=== PATIENT | female | born 1980 | race Caucasian/White ===

== ENCOUNTER 2019-01-08 10:53 | Emergency (ER) | payer MEDICAID ==
[~2019-01-08] VITALS: Ht 157.5 cm; Wt 63.6 kg
[~2019-01-08 10:53] MED LIST: BACI28.42 TP; CYCL-394 PO; HYDR1TAB PO; IBUP-1984 PO; IBUP-1985 PO; NO HOME MEDS
[2019-01-08 11:18] VITALS: BP 96/65
[2019-01-08] MEDS ORDERED: lactulose 20gm/30ml cup PO ONE (12:00)
[2019-01-08] MEDS ORDERED: normal saline 1000ML IV soln IVB ONE (12:00)
[2019-01-08 13:09] LABS: BASOPHILS % (AUTO) 0.9 % (0-1); EOSINOPHILS # (AUTO) 0.1 X10'3 (0-0.9); EOSINOPHILS % (AUTO) 1.7 % (0-6); HEMATOCRIT 38.8 % (35.0-45.0); HEMOGLOBIN 12.9 g/dl (12.0-16.0); LYMPHOCYTES # (AUTO) 1.2 X10'3 (1.1-4.8); LYMPHOCYTES % (AUTO) 22.1 % (21-51); MEAN CORPUSCULAR HEMOGLOBIN 25.9 PG (27.0-31.0); MEAN CORPUSCULAR HGB CONC 33.2 g/dL (33.0-36.5); MEAN PLATELET VOLUME 7.7 FL (7.4-10.4); MONOCYTES # (AUTO) 0.3 X10'3 (0-0.9); MONOCYTES % (AUTO) 6.6 % (2-12); NEUTROPHILS # (AUTO) 3.6 X10'3 (1.8-7.7); NEUTROPHILS % (AUTO) 68.7 % (42-75); PLATELET COUNT 295 X10'3 (140-440); RED BLOOD COUNT 4.98 X10'6 (4.20-5.60); WHITE BLOOD COUNT 5.2 X10'3 (4.5-11.0)
[2019-01-08] MEDS ORDERED: azithromycin 250mg tablet PO ONE (13:20)
[2019-01-08] MEDS ORDERED: CefTRIAXone 250MG IM Kit w/LIDOcaine IM ONE (13:20)
[2019-01-08] MEDS ORDERED: HYDR-4383 PO (13:22)
[2019-01-08] MEDS ORDERED: ACYC400T PO (13:22)
[2019-01-08 13:30] LABS: ALANINE AMINOTRANSFERASE 16 U/L (12-78); ALBUMIN 3.1 G/DL (3.4-5.0); ALBUMIN/GLOBULIN RATIO 0.6 (1.1-1.5); ALKALINE PHOSPHATASE 106 IU/L (46-116); ANION GAP 8 (8-16); ASPARTATE AMINO TRANSFERASE 16 U/L (10-37); BILIRUBIN,TOTAL 0.2 MG/DL (0.1-1.0); BLOOD UREA NITROGEN 12 MG/DL (7-18); BUN/CREATININE RATIO 16.7 (6.6-38.0); CALCIUM 8.6 MG/DL (8.5-10.1); CHLORIDE 101 MMOL/L (99-107); CREATININE 0.72 MG/DL (0.40-0.90); GLUCOSE 101 MG/DL (70-104); POTASSIUM 4.2 MMOL/L (3.5-5.1); SODIUM 137 MMOL/L (135-145); TOTAL CARBON DIOXIDE 27.7 MMOL/L (24-32); TOTAL PROTEIN 8.2 G/DL (6.4-8.2); eGFR > 90 ML/MIN
[2019-01-08 13:46] LABS: HIV ANTIBODY 1&2 RAPID NON-REACTIVE (Neg)
[2019-01-10 11:21] LABS: RPR Reactive (Non Reactive)
--- NOTE | 2019-01-10 14:05 | NUR ---
Patient possitive for syphillis and was calling patient to come in for treatment, unable to reach patient by all three phone numbers under demographics.
== END 2019-01-08 13:47 | disposition home or self-care (01) ==
LOC: ER 10:53
DX: A63.8 Other specified predominantly sexually transmitted diseases (principal); B00.9 Herpesviral infection, unspecified; L98.8 Other specified disorders of the skin and subcutaneous tissue; F12.90 Cannabis use, unspecified, uncomplicated; F15.90 Other stimulant use, unspecified, uncomplicated; F17.200 Nicotine dependence, unspecified, uncomplicated; Z90.49 Acquired absence of other specified parts of digestive tract; Z88.2 Allergy status to sulfonamides; Z79.899 Other long term (current) drug therapy
CPT/HCPCS: 36415; 80053; 85025; 86592; 86703; 96372; 99283; J0696

== ENCOUNTER 2022-01-28 16:52 | Emergency (ER) | payer MEDICAID ==
[~2022-01-28] VITALS: Ht 157.5 cm; Wt 65.5 kg
[~2022-01-28 16:52] MED LIST changes: +BISA-155 PO; +HYDR-4383 PO; +POLY119P2 PO
[2022-01-28 17:10] VITALS: BP 113/78
[2022-01-28] MEDS ORDERED: ketorolac tromethamine 15mg/ml inj. IM ONE (18:20)
== END 2022-01-28 18:38 | disposition home or self-care (01) ==
LOC: ER 16:52
DX: M79.644 Pain in right finger(s) (principal); M79.641 Pain in right hand; R22.31 Localized swelling, mass and lump, right upper limb; F12.90 Cannabis use, unspecified, uncomplicated; F15.90 Other stimulant use, unspecified, uncomplicated; Z90.49 Acquired absence of other specified parts of digestive tract; Z88.2 Allergy status to sulfonamides; Z79.899 Other long term (current) drug therapy
CPT/HCPCS: 73130; 96372; 99283; J1885

== ENCOUNTER 2022-08-31 06:10 | Day surgery (SDC) | payer MEDICAID ==
[2022-08-27 15:38] LABS: BASOPHILS # (AUTO) 0.1 X10'3 (0-0.2); EOSINOPHILS # (AUTO) 0.4 X10'3 (0-0.9); EOSINOPHILS % (AUTO) 5.2 % (0-6); LYMPHOCYTES # (AUTO) 2.3 X10'3 (1.1-4.8); LYMPHOCYTES % (AUTO) 28.9 % (21-51); MEAN CORPUSCULAR HEMOGLOBIN 27.3 PG (27.0-31.0); MEAN CORPUSCULAR HGB CONC 33.4 g/dL (33.0-36.5); MEAN CORPUSCULAR VOLUME 81.8 FL (78-98); MEAN PLATELET VOLUME 8.8 FL (7.4-10.4); MONOCYTES # (AUTO) 0.5 X10'3 (0-0.9); NEUTROPHILS # (AUTO) 4.5 X10'3 (1.8-7.7); NEUTROPHILS % (AUTO) 57.9 % (42-75); PRE OP HEMATOCRIT 37.8 % (35.0-45.0); PRE OP HEMOGLOBIN 12.6 g/dL (12.0-16.0); PRE OP PLATELET COUNT 285 X10'3 (140-440); RED BLOOD COUNT 4.62 X10'6 (4.20-5.60); RED CELL DISTRIBUTION WIDTH 16.7 % (11.5-14.5)
[2022-08-27 15:55] LABS: ALBUMIN 3.8 G/DL (3.4-5.0); ALKALINE PHOSPHATASE 87 IU/L (46-116); BLOOD UREA NITROGEN 10 MG/DL (7-18); BUN/CREATININE RATIO 12.3 (6.6-38.0); CALCIUM 8.7 MG/DL (8.5-10.1); CHLORIDE 103 MMOL/L (99-107); CREATININE 0.81 MG/DL (0.40-0.90); PRE OP ALT 22 U/L (30-65); PRE OP ANION GAP 8 (8-16); PRE OP AST 19 U/L (10-37); PRE OP BILIRUB, TOTAL 0.2 MG/DL (0.0-1.0); PRE OP GLUCOSE 113 MG/DL (70-104); PRE OP POTASSIUM 3.6 MMOL/L (3.4-5.1); PRE OP SODIUM 137 MMOL/L (135-145); TOTAL CARBON DIOXIDE 25.6 MMOL/L (24-32); TOTAL PROTEIN 7.5 G/DL (6.4-8.2); eGFR 78 ML/MIN
[2022-08-27 16:00] LABS: HCG SERUM QL NEGATIVE
[~2022-08-31] VITALS: Ht 157.5 cm; Wt 64.1 kg
[2022-08-31] VITALS (8 sets, daily range): BP systolic 103–124; BP diastolic 66–79
[~2022-08-31 06:10] MED LIST changes: -BACI28.42 TP; -BISA-155 PO; +CEFAZOLIN IV ONE; -CYCL-394 PO; +D5W IV ONE; -HYDR-4383 PO; -HYDR1TAB PO; -IBUP-1984 PO; -IBUP-1985 PO; -POLY119P2 PO; +famotidine 20mg tablet PO ONE; +ringers solution, lacted 500 ML IV SCH
[2022-08-31] MEDS ORDERED: BUPIVAcaine/PF 2.5mg/ml (0.25%) 10ml vial ONE (06:47)
[2022-08-31] MEDS ORDERED: LIDOcaine 1% 30ml preserv. free vial ONE (07:21)
[2022-08-31] MEDS ORDERED: fentaNYL/PF 50MCG/1 ML 2ML syringe ONE (07:48)
[2022-08-31] MEDS ORDERED: MIDAZolam 1 MG/ML 5ML VIAL ONE (07:48)
[2022-08-31] MEDS ORDERED: ketorolac trometh. 30mg/ml inj. ONE (07:48)
[2022-08-31] MEDS ORDERED: sevoflurane 250ml liquid IH ONE (08:22)
[2022-08-31] MEDS ORDERED: propofol inj 20 ML IV ONE (08:49)
[2022-08-31] MEDS ORDERED: naloxone 0.4 mg/ml inj ONE (09:11)
--- NOTE | 2022-08-31 09:14 | NUR ---
Received from OR via [facility], accompanied by Anesthesiologist KATERIN and OR NURSE report given by Anesthesiolgist. PT DROWSY VSS WITH SB AT TIMES. AWAKENS WITH VIGOROUS STIMULATION. 02 MASK AT 6 LPM = 100%. Addendum: 08/31/22 at 0931 by Isamar Dash RN Amended: Links added.
--- NOTE | 2022-08-31 10:24 | NUR ---
DISCHARGE CRITERIA MET FOR PT AND DAUGHTER PICKED UP AT MAIN ENTRANCE. PT WAS TRANSFERRED TO CAR AND SEAT BELT SECURED. PT UNDERSTANDING OF D/C INSTRUCTIONS. DENIES PAIN OR DISCOMFORT. VSS. ABLE TO TOLERATED LIQUIDS Addendum: 08/31/22 at 1057 by Isamar Dash RN Amended: Links added.
== END 2022-08-31 13:39 | disposition home or self-care (01) ==
LOC: PAS 06:10
PROVIDERS: ATTEND Orthopaedic Surgery Hand Surgery
DX: G56.01 Carpal tunnel syndrome, right upper limb (principal); L40.9 Psoriasis, unspecified; F17.210 Nicotine dependence, cigarettes, uncomplicated; Z79.899 Other long term (current) drug therapy; Z98.890 Other specified postprocedural states; F12.90 Cannabis use, unspecified, uncomplicated; Z88.2 Allergy status to sulfonamides
CPT/HCPCS: 36415; 64721; 80053; 82948; 84703; 85025; A6258; J0690; J1885; J2250; J2310; J2704; J3010; J3490; J7030; J7120; Z7506; Z7512; A4215; A7000

== ENCOUNTER 2022-09-09 15:08 | Emergency (ER) | payer MEDICAID ==
[~2022-09-09] VITALS: Ht 157.5 cm; Wt 70.9 kg
[~2022-09-09 15:08] MED LIST changes: -CEFAZOLIN IV ONE; -D5W IV ONE; -famotidine 20mg tablet PO ONE; -ringers solution, lacted 500 ML IV SCH
[2022-09-09 15:24] VITALS: BP 107/84
[2022-09-09 15:53] LABS: CLARITY,URINE CLEAR (Clear); COLOR,URINE YELLOW (Yellow); GLUCOSE, URINE NEGATIVE (Neg); KETONES,URINE NEGATIVE (Neg); LEUKOCYTE ESTERASE ,URINE NEGATIVE (Neg); NITRITES, URINE NEGATIVE (Neg); OCCULT BLOOD,URINE NEGATIVE (Neg); PROTEIN,URINE 30 mg/dl (Neg); UROBILINOGEN,URINE 0.2 E.U/dL (0.2-1.0)
[2022-09-09 15:57] LABS: UA COLLECTION TYPE CLN CATCH MIDSTREAM; URINE HCG NEGATIVE (NEG)
[2022-09-09 15:58] LABS: BACTERIA,URINE FEW /HPF (Neg); MUCUS STRANDS FEW /LPF (Neg); RBC,URINE 0-2 /HPF (0-2); SQUAMOUS EPITHELIAL CELL,UR MODERATE /LPF (FEW); WBC,URINE 0-4 /HPF (0-4)
[2022-09-09] MEDS ORDERED: CEPH500C2 PO (17:00)
[2022-09-09] MEDS ORDERED: cephalexin 500mg capsule PO ONE (17:05)
== END 2022-09-09 17:10 | disposition home or self-care (01) ==
LOC: ER 15:09
DX: N39.0 Urinary tract infection, site not specified (principal); R10.31 Right lower quadrant pain; R10.32 Left lower quadrant pain; F12.90 Cannabis use, unspecified, uncomplicated; F15.90 Other stimulant use, unspecified, uncomplicated; Z90.89 Acquired absence of other organs; Z88.2 Allergy status to sulfonamides; Z79.2 Long term (current) use of antibiotics
CPT/HCPCS: 81001; 81025; 99283

== ENCOUNTER 2023-02-04 12:19 | Emergency (ER) | payer MEDICAID ==
[~2023-02-04] VITALS: Ht 157.5 cm; Wt 65.0 kg
[2023-02-04 12:40] VITALS: BP 153/119
[2023-02-04 13:17] LABS: BASOPHILS # (AUTO) 0.1 X10'3 (0-0.2); BASOPHILS % (AUTO) 0.5 % (0-1); EOSINOPHILS # (AUTO) 0.1 X10'3 (0-0.9); EOSINOPHILS % (AUTO) 0.6 % (0-6); HEMATOCRIT 44.7 % (35.0-45.0); HEMOGLOBIN 14.5 g/dl (12.0-16.0); LYMPHOCYTES # (AUTO) 1.4 X10'3 (1.1-4.8); LYMPHOCYTES % (AUTO) 8.7 % (21-51); MEAN CORPUSCULAR HEMOGLOBIN 25.9 PG (27.0-31.0); MEAN CORPUSCULAR HGB CONC 32.5 g/dL (33.0-36.5); MEAN CORPUSCULAR VOLUME 79.7 FL (78-98); MEAN PLATELET VOLUME 9.2 FL (7.4-10.4); MONOCYTES # (AUTO) 1.2 X10'3 (0-0.9); MONOCYTES % (AUTO) 7.4 % (2-12); NEUTROPHILS # (AUTO) 13.8 X10'3 (1.8-7.7); NEUTROPHILS % (AUTO) 82.8 % (42-75); PLATELET COUNT 232 X10'3 (140-440); RED BLOOD COUNT 5.61 X10'6 (4.20-5.60); RED CELL DISTRIBUTION WIDTH 17.9 % (11.5-14.5); WHITE BLOOD COUNT 16.6 X10'3 (4.5-11.0)
[2023-02-04 13:32] LABS: CLARITY,URINE CLOUDY (Clear); COLOR,URINE YELLOW (Yellow); GLUCOSE, URINE NEGATIVE (Neg); KETONES,URINE NEGATIVE (Neg); LEUKOCYTE ESTERASE ,URINE MODERATE (Neg); NITRITES, URINE POSITIVE (Neg); OCCULT BLOOD,URINE MODERATE (Neg); PROTEIN,URINE 100 mg/dl (Neg); URINE HCG NEGATIVE (NEG); UROBILINOGEN,URINE 0.2 E.U/dL (0.2-1.0)
[2023-02-04 13:35] LABS: ALANINE AMINOTRANSFERASE 24 U/L (12-78); ALBUMIN 3.5 G/DL (3.4-5.0); ALBUMIN/GLOBULIN RATIO 0.8 (1.1-1.5); ALKALINE PHOSPHATASE 89 IU/L (46-116); ANION GAP 10 (8-16); ASPARTATE AMINO TRANSFERASE 17 U/L (10-37); BILIRUBIN,TOTAL 0.5 MG/DL (0.1-1.0); BLOOD UREA NITROGEN 8 MG/DL (7-18); BUN/CREATININE RATIO 11.6 (10.0-20.0); CALCIUM 9.1 MG/DL (8.5-10.1); CHLORIDE 100 MMOL/L (99-107); CREATININE 0.69 MG/DL (0.40-0.90); GLUCOSE 109 MG/DL (70-104); LIPASE < 50 U/L (73-393); SODIUM 134 MMOL/L (135-145); TOTAL CARBON DIOXIDE 23.7 MMOL/L (24-32); eGFR > 90 ML/MIN
[2023-02-04 13:38] LABS: UA COLLECTION TYPE CLN CATCH MIDSTREAM
[2023-02-04 13:39] LABS: WBC,URINE TNTC /HPF (0-4)
[2023-02-04 13:40] LABS: BACTERIA,URINE 3+ /HPF (Neg); SQUAMOUS EPITHELIAL CELL,UR FEW /LPF (FEW)
[2023-02-04] MEDS ORDERED: FOSF3PAC PO (15:19)
[2023-02-04] MEDS ORDERED: NITR100C6 PO (15:19)
--- NOTE | 2023-02-04 15:51 | NUR ---
PRESCRIPTIONS ELECTRONICALLY SENT TO [facility] ON [address]. PATIENT CALLED AND INFORMED OF DX: UTI WITH RX AT [facility]. PATIENT HAS ALREADY PICKED UP MED AND WILL BEGIN ORDERED.
== END 2023-02-04 16:00 | disposition left against medical advice (07) ==
LOC: ER 12:19
DX: N39.0 Urinary tract infection, site not specified (principal); F12.90 Cannabis use, unspecified, uncomplicated; F15.90 Other stimulant use, unspecified, uncomplicated; Z90.49 Acquired absence of other specified parts of digestive tract; Z79.899 Other long term (current) drug therapy
CPT/HCPCS: 36415; 80053; 81001; 81025; 83690; 85025; 87077; 87088; 87186; 99283